=== PATIENT | male | born 1940 | race Caucasian/White ===

== ENCOUNTER 2016-02-21 10:22 | Outpatient (CLI) | payer MEDICARE ==
[2016-02-21 11:21] LABS: Anion Gap 14 mmol/L (10-20); BUN (Urea Nitrogen) 10 mg/dL (8.4-25.7); Calc. Creatinine Clearance 0 mL/min (70-130); Calcium 9.3 mg/dL (7.8-10.44); Carbon Dioxide 24 mmol/L (23-31); Chloride 109 mmol/L (98-107); Estimated GFR-MDRD 60; Magnesium 2.5 mg/dL (1.6-2.6)
== END 2016-02-21 10:23 ==
LOC: NAVSJIPCSP 10:22
PROVIDERS: ATTEND Internal Medicine
DX: I48.91 Unspecified atrial fibrillation (principal)
CPT/HCPCS: 36415; 80048; 83735

== ENCOUNTER 2016-08-21 11:36 | Outpatient (CLI) | payer MEDICARE ==
[2016-08-21 13:43] LABS: #Basophils 0.1 thou/uL (0.0-0.2); #Eosinphils 0.1 thou/uL (0.0-0.7); #Monocytes 0.5 thou/uL (0.11-0.59); #Neutrophils 4.2 thou/uL (1.40-6.50); %Eosinophils 1.9 % (0.0-10.0); %Lymphocytes 29.4 % (21.0-51.0); %Monocytes 6.8 % (0.0-10.0); %Neutrophils 60.9 % (42.0-75.0); Hemoglobin 14.4 g/dL (14.0-18.0); Mean Corpuscular HGB CONC 31.9 g/dL (32.0-36.0); Mean Corpuscular Volume 90.8 fl (80.0-94.0); Mean Platelet Volume 7.6 fL (7.4-10.4); Platelet Count 225 thou/uL (130-400); Red Blood Cell (RBC) Count 4.99 mill/uL (4.70-6.10); White Blood Cell (WBC) Count 6.8 thou/uL (4.8-10.8)
[2016-08-21 14:06] LABS: ALT (SGPT) 14 U/L (8-55); AST (SGOT) 19 U/L (5-34); Albumin 4.1 g/dL (3.4-4.8); Alkaline Phosphatase 121 U/L (40-150); Anion Gap 16 mmol/L (10-20); BUN (Urea Nitrogen) 13 mg/dL (8.4-25.7); Bilirubin, Total 0.6 mg/dL (0.2-1.2); Calc. Creatinine Clearance 0 mL/min (70-130); Calcium 8.8 mg/dL (7.8-10.44); Carbon Dioxide 21 mmol/L (23-31); Cardiac Risk 3.7 (Less than 4.5); Chloride 109 mmol/L (98-107); Cholesterol 140 mg/dl (< 200 Desired); Estimated GFR-MDRD 82; Globulin 2.8 g/dL (2.4-3.5); Glucose 106 mg/dL (83-110); HDL Cholesterol 38 mg/dL (>60 Neg Risk); LDL Cholesterol, Calculated 80 mg/dL; Potassium 4.5 mmol/L (3.5-5.1); Protein, Total 6.9 g/dL (5.8-8.1); Sodium 141 mmol/L (136-145); Triglycerides 112 mg/dL (Less than 150)
[2016-08-21 14:21] LABS: Bilirubin Negative (Negative); Blood, Urine Trace (Negative); Clarity Slightly Cloudy (Clear); Glucose, Urine (Dipstick) Negative (Negative); Leukocyte Negative (Negative); Nitrite Negative (Negative); Protein, Urine (Dipstick) Negative (Neg-Trace); Urobilinogen 0.2 mg/dL (0.2-1.0); pH, Urine 5.5 (5.0-9.0)
[2016-08-21 14:57] LABS: Bacteria/HPF Rare-Few HPF (None Seen); Squamous Epithelial 0-3 HPF (0-3); WBC/HPF 0-3 HPF (0-3)
== END 2016-08-21 11:37 | disposition home or self-care (01) ==
LOC: NAVSJIPCSP 11:36
PROVIDERS: ATTEND Internal Medicine
DX: E78.5 Hyperlipidemia, unspecified (principal); I48.91 Unspecified atrial fibrillation; I10 Essential (primary) hypertension
CPT/HCPCS: 36415; 80053; 80061; 81003; 81015; 84443; 85025

== ENCOUNTER 2017-03-30 11:22 | Emergency (ER) | payer MEDICARE ==
[2017-03-30] MEDS ORDERED: Ondansetron HCl/PF 4 MG/2 ML Vial ONE (11:55)
[2017-03-30] MEDS ORDERED: Sodium Chloride 0.9% 1,000 ML ONE (11:55)
[2017-03-30] MEDS ORDERED: Meclizine HCl 25 MG TAB ONE (12:11)
--- NOTE | 2017-03-30 12:28 | RAD ---
PORTABLE AP CHEST: Date: 03/30/17 HISTORY: Dizziness and vomiting. History of vertigo. COMPARISON: 12/01/14. FINDINGS: Cardiac silhouette is magnified by projection, but stable in size from the prior exam. Pulmonary vasc ulature is within normal limits. Lungs are clear. Vascular calcifications seen in the thoracic aorta. There is mild elevation of the right hemidiaphragm. IMPRESSION: No acute cardiopulmonary process. POS: [facility]
[2017-03-30 12:31] LABS: CKMB 1.6 ng/mL (0-6.6); Troponin I Less than 0.010 ng/mL (< 0.028)
--- NOTE | 2017-03-30 12:33 | CT ---
NONCONTRAST CT HEAD: Date: 03/30/17 HISTORY: Dizziness and vomiting. Feeling of water in ears last night. COMPARISON: 12/14/05. FINDINGS: There are scattered areas of decreased attenuation in the periventricular white matter, which are non specific but likely reflective of chronic small vessel ischemic changes, which have progressed from t he prior study. There is no evidence of an acute cortical infarction, hemorrhage, mass effect, or mid line shift. The visualized paranasal sinuses and mastoid air cells are clear. There is no opacificati on seen in the middle ear cavities bilaterally. Osseous structures are intact. There is increased density seen in the subcutaneous soft tissues involving the posterior scalp soft t issues in the occipital region, also noted on the prior study and likely related to scarring. IMPRESSION: 1. No acute intracranial abnormalities demonstrated. 2. Mild chronic small vessel ischemic changes and cerebral volume loss. POS: [facility]
[2017-03-30 12:39] LABS: ALT (SGPT) 15 U/L (8-55); AST (SGOT) 17 U/L (5-34); Albumin 4.2 g/dL (3.4-4.8); Alkaline Phosphatase 140 U/L (40-150); Anion Gap 18 mmol/L (10-20); BUN (Urea Nitrogen) 14 mg/dL (8.4-25.7); Bilirubin, Total 0.6 mg/dL (0.2-1.2); Calc. Creatinine Clearance 0 mL/min (70-130); Calcium 9.1 mg/dL (7.8-10.44); Carbon Dioxide 19 mmol/L (23-31); Chloride 108 mmol/L (98-107); Estimated GFR-MDRD 74; Globulin 3.2 g/dL (2.4-3.5); Glucose 122 mg/dL (83-110); Potassium 4.5 mmol/L (3.5-5.1); Protein, Total 7.4 g/dL (5.8-8.1); Sodium 140 mmol/L (136-145)
[2017-03-30 12:48] LABS: #Basophils 0.1 thou/uL (0.0-0.2); #Eosinphils 0.1 thou/uL (0.0-0.7); #Lymphocytes 2.6 thou/uL (1.20-3.40); #Monocytes 0.8 thou/uL (0.11-0.59); #Neutrophils 5.9 thou/uL (1.40-6.50); %Basophils 0.9 % (0.0-1.0); %Eosinophils 1.1 % (0.0-10.0); %Lymphocytes 27.6 % (21.0-51.0); %Monocytes 8.3 % (0.0-10.0); %Neutrophils 62.1 % (42.0-75.0); Hemoglobin 15.2 g/dL (14.0-18.0); Mean Corpuscular HGB CONC 32.7 g/dL (32.0-36.0); Mean Corpuscular Hemoglobin 28.9 pg (27.0-31.0); Mean Corpuscular Volume 88.2 fl (80.0-94.0); Mean Platelet Volume 9.5 fL (7.4-10.4); Platelet Count 240 thou/uL (130-400); RBC Distribution Width 12.8 % (11.5-14.5); Red Blood Cell (RBC) Count 5.25 mill/uL (4.70-6.10); White Blood Cell (WBC) Count 9.5 thou/uL (4.8-10.8)
[2017-03-30] MEDS ORDERED: Diazepam 5 MG TAB ONE (13:27)
[2017-03-30] MEDS ORDERED: Diazepam 10 MG/2 ML SYRINGE IVP SCH (13:30)
== END 2017-03-30 14:04 | disposition short-term general hospital (02) ==
LOC: NAV ERS 11:22
DX: I48.91 Unspecified atrial fibrillation (principal); E87.2 Acidosis; H55.00 Unspecified nystagmus; I10 Essential (primary) hypertension; M19.90 Unspecified osteoarthritis, unspecified site; Z79.82 Long term (current) use of aspirin; Z79.899 Other long term (current) drug therapy
CPT/HCPCS: 70450; 71045; 80053; 82553; 83880; 84484; 85025; 93005; 96361; 96374; 96375; J2405; J7050

== ENCOUNTER 2023-06-20 09:42 | Emergency (ER) | payer MEDICARE ==
[2023-06-20 10:24] LABS: INR-International Normal Ratio 4.9; Prothrombin Time 46.3 sec (12.0-14.7)
[2023-06-20 10:25] LABS: PTT 55.5 sec (22.9-36.1)
== END 2023-06-20 11:30 | disposition home or self-care (01) ==
LOC: NAV ERS 09:42
DX: I48.91 Unspecified atrial fibrillation (principal); I10 Essential (primary) hypertension; Z79.01 Long term (current) use of anticoagulants
CPT/HCPCS: 85610; 85730; 99283